=== PATIENT | male | born 1960 | race African-American/Black ===

== ENCOUNTER 2020-06-02 13:49 | Inpatient (IN) | payer OTHER ==
[~2020-06-02] VITALS: Ht 182.9 cm; Wt 89.4 kg
[2020-06-02 13:53] VITALS: BP 132/76
[2020-06-02 15:02] LABS: ABSOLUTE NEUTROPHILS 3.5 thou/uL (1.4-8.2); BASOPHILS 0.7 % (0.0-2.0); EOSINOPHILS 0.3 % (0.0-3.0); HEMATOCRIT 22.7 % (42.0-52.0); HEMOGLOBIN 7.6 gm/dL (14.0-18.0); LYMPHOCYTES 25.1 % (24.0-44.0); MCH 27.9 pg (26.0-34.0); MCHC 33.4 g/dL (28.0-37.0); MCV 83.5 fL (80.0-100.0); MONOCYTES 6.6 % (1.0-8.0); PLATELET COUNT 198 thou/uL (150-400); POLYS 67.3 % (36.0-66.0); RBC 2.71 mil/uL (4.50-6.00); RDW 14.4 % (10.5-14.5); WBC 5.2 thou/uL (4.0-11.0)
[2020-06-02 15:08] LABS: CALCIUM 8.9 mg/dL (8.5-10.1); CREATININE 1.3 mg/dL (0.7-1.3); POTASSIUM 3.7 mmol/L (3.5-5.1)
[2020-06-02 15:14] LABS: ALBUMIN 3.5 g/dL (3.4-5.0); TOTAL BILIRUBIN 0.3 mg/dL (0.2-1.0); TOTAL PROTEIN 6.2 g/dL (6.4-8.2)
[2020-06-02 21:20] VITALS: BP 135/73
[2020-06-02 21:53] VITALS: BP 134/82
[2020-06-02 22:15] VITALS: BP 142/78
[2020-06-02 23:41] VITALS: BP 131/68
[2020-06-03 03:25] VITALS: BP 133/72
[2020-06-03 03:54] LABS: HEMOGLOBIN 6.6 gm/dL (14.0-18.0); MCV 83.9 fL (80.0-100.0); WBC 5.9 thou/uL (4.0-11.0)
[2020-06-03 03:56] LABS: MCH 28.3 pg (26.0-34.0); MCHC 33.7 g/dL (28.0-37.0); RBC 2.33 mil/uL (4.50-6.00); RDW 14.5 % (10.5-14.5)
[2020-06-03 04:02] LABS: HEMATOCRIT 19.6 % (42.0-52.0)
[2020-06-03 05:30] VITALS: BP 128/71
--- NOTE | 2020-06-03 07:24 | NUR ---
ADMIT FROM ED; EDUCATED ON FALL PRECAUTIONS; NEEDS WITHIN REACH; ADMISSION COMPLETE/CONSENTS SIGNED; NO C/O OF PAIN; AOX4/SLEEPY; WILL CONTINUE TO MONITOR
[2020-06-03 12:34] LABS: HEMOGLOBIN 7.6 gm/dL (14.0-18.0)
[2020-06-03 16:54] VITALS: BP 118/77
--- NOTE | 2020-06-03 18:49 | NUR ---
PT IS AOX4, VSS, NO C/O PAIN. PT REMAINS ON CLEAR LIQUID DIET, WILL BE NPO AT MIDNIGHT FOR COLONOSCOPY IN MORNING. NO BM THIS SHIFT, CALL LIGHT IN REACH. WILL CONTINUE TO MONITOR.
[2020-06-03 20:45] VITALS: BP 133/71
--- NOTE | 2020-06-03 22:56 | NUR ---
PATIENT FINISH THE MIRALAX.INSTRUCTED TO BE NPO AFTER MIDNIGHT FOR THE PROCEDURE TOMORROW.BED IS AVAILABLE IN [address] [place] [address].REPORT GIVEN TO ONCOMING NURSE.TRANSFERRED TO ROOM 443.STABLE.POC CONTINUED.
[2020-06-03 23:06] LABS: GLYCOHEMOGLOBIN (HGB A1C) 5.7 % (4.8-5.6)
[2020-06-04 04:27] VITALS: BP 122/65
--- NOTE | 2020-06-04 04:44 | NUR ---
ASSUMED CARE OF PT FROM 2N AT 2150HRS. PT AOX4 AND LETS NEEDS BE KNOWN. PT IS UP AD [facility]LE. AGREE WITH PRVIOUS NURSES' ASSESSMENT. PT HAS ACTIVE GIB AND RED CLEAR BM NOTED S/P BOWEL PREP. PT PLACED NPO AT RI FOR COLONOSCOPY IN THE AM. PT REPORTS SOME ABDOMINAL PAIN. PT WAS ABLE TO GET COMFORTABLE AND SLEEP PART OF THE SHIFT. WILL CONTINUE TO MONITOR.
[2020-06-04 06:08] LABS: HEMATOCRIT 21.7 % (42.0-52.0); HEMOGLOBIN 7.1 gm/dL (14.0-18.0); MCH 27.6 pg (26.0-34.0); MCHC 32.6 g/dL (28.0-37.0); MCV 84.6 fL (80.0-100.0); RBC 2.57 mil/uL (4.50-6.00); RDW 15.2 % (10.5-14.5)
[2020-06-04 08:10] VITALS: BP 113/72
[2020-06-04 11:51] VITALS: BP 104/57; BP 111/72; BP 119/70; BP 125/76; BP 137/66
[2020-06-04 14:14] VITALS: BP 119/70
--- NOTE | 2020-06-04 16:22 | NUR ---
assessment: CM REVIEWED CHART AND SPOKE WITH PT. PT IS ALERT AND ORIENTED X4. PT REPORTS THAT HE LIVES IN A HOUSE WITH HIS , DAUGHTER AND GRANDDAUGHTER. PT REPORTS THAT HE HAS A FEW STEPS TO ENTER AND A FULL FLIGHT OF STEPS TO HIS BEDROOM. PT REPORTS BEING FULLY INDEPENDENT WITH ADLS AND AMBULATION. PT REPORTS HE HAS NOT HAD HH IN THE PAST. PT DOES NOT ANTICIPATE HAVING ANY NEEDS AT DISCHARGE. PT IS TO HAVE COLONOSCOPY TODAY. CM WILL CONTINUE TO FOLLOW.
--- NOTE | 2020-06-04 16:29 | NUR ---
assumed care at 0700. pt is a&o x4. pt complains of feeling lighted, slight nausea. pt has a low hemoglobin. transfusion was given at 1 Unit. pt is stable and did a procedure, colonscopy. no active bleeds were found. scd hose are in place. iv is intact and shows no signs of redness or swelling. pt is tachycardia when listen to heart sounds but have regular lung sounds. soft abd. pt denies pain, n/v. fall precaution. call light within reach. will continue to monitor pt. pt is still having bright red stool when using the restroom.
[2020-06-04 17:03] VITALS: BP 121/70
[2020-06-04 18:35] LABS: HEMATOCRIT 24.9 % (42.0-52.0); HEMOGLOBIN 8.1 gm/dL (14.0-18.0)
[2020-06-05 03:10] VITALS: BP 117/60
[2020-06-05 06:11] LABS: HEMATOCRIT 21.4 % (42.0-52.0); HEMOGLOBIN 7.1 gm/dL (14.0-18.0); MCH 28.2 pg (26.0-34.0); MCHC 33.4 g/dL (28.0-37.0); MCV 84.6 fL (80.0-100.0); RBC 2.53 mil/uL (4.50-6.00); RDW 14.6 % (10.5-14.5); WBC 5.5 thou/uL (4.0-11.0)
[2020-06-05 08:35] VITALS: BP 130/64
--- NOTE | 2020-06-05 08:45 | NUR ---
ASSUMED CARE AT 0700. PT IS A&O X4. PT DENIES NAUSEA, VOMITTIG, DIARRHEA. PT COMPLAINS OF SLIGHT HEADACHE. CHECKED HEMOGLOBIN . HEMOGLOBIN DROPPED DOWN TO 7.1 AGAIN. WILL CONTINUE TO MONITOR BP AND S/S. IV ON RIGHT AC IS INTACT AND SHOWS NO SIGNS OF RENDESS OR SWELLING. PT DENIES FEELING DIZZY. PT IS CURRENTLY SLEEPING WHEN I WOKE UP. PT BARELY SLEPT LAST NIGHT. COULDNT FIND ASLEEP. HEART AND LUNGS SOUNDS ARE REGULAR.
[2020-06-05 10:58] VITALS: BP 119/70; BP 120/68; BP 122/65; BP 127/69; BP 131/77
--- NOTE | 2020-06-05 13:50 | NUR ---
ON-GOING ASSESSMENT: CM REVIEWED CHART. PT IS RECEIVING ONE UNIT OF BLOOD DUE TO LOW HEMOGLOBIN. GI IS FOLLOWING. CM WILL CONTINUE TO FOLLOW TO ASSIST NEEDED.
[2020-06-05 16:11] LABS: HEMATOCRIT 24.2 % (42.0-52.0); HEMOGLOBIN 8.1 gm/dL (14.0-18.0)
[2020-06-05 17:40] VITALS: BP 119/67
[2020-06-05 20:11] VITALS: BP 119/68
--- NOTE | 2020-06-06 05:00 | NUR ---
PT BEEN UP AD MERLE THRO NOC. NO BM/OR RATHER ANY BLOODY STOOLS. ON ROOM AIR, DENIES ANY PAIN OR NAUSEA. STEADY ON FEET, NO DIZZINESS.
[2020-06-06 06:04] LABS: HEMATOCRIT 24.5 % (42.0-52.0); HEMOGLOBIN 8.2 gm/dL (14.0-18.0); MCH 28.5 pg (26.0-34.0); MCHC 33.4 g/dL (28.0-37.0); MCV 85.3 fL (80.0-100.0); RBC 2.87 mil/uL (4.50-6.00); RDW 14.7 % (10.5-14.5); WBC 5.2 thou/uL (4.0-11.0)
[2020-06-06 08:06] VITALS: BP 137/80
[2020-06-06] MEDS ORDERED: FERROUS SULFAT325 MG PO (09:03)
[2020-06-06 10:04] VITALS: BP 137/80
--- NOTE | 2020-06-06 10:26 | NUR ---
on-going assessment: CM REVIEWED CHART. PT HAS ORDERS TO DISCHARGE HOME TODAY NO NEEDS.
--- NOTE | 2020-06-06 10:59 | NUR ---
Assumed care of pt. at 0700. Pt. is calm and cooperative. Does not complain of pain. Pt. received clearance for DC by Dr. Valdez. Pt. given discharge education/documentation and had any questions answered. Pt. left unit with all belongings and .
== END 2020-06-06 11:00 | disposition home or self-care (01) | DRG 378 ==
LOC: EDBD 13:49 → ER 13:49 → EROBS 18:07 → 2N 18:07 → EROBS 18:56 → 2N 21:54 → 4S 06-03 21:54
PROVIDERS: Physician Assistant; ADMIT Hospitalist; ATTEND Hospitalist
DX: K57.31 Diverticulosis of large intestine without perforation or abscess with bleeding (principal); D62 Acute posthemorrhagic anemia; R73.9 Hyperglycemia, unspecified; Z20.828 Contact with and (suspected) exposure to other viral communicable diseases
CPT/HCPCS: 10081; 10100; 10195; 70005